=== PATIENT | male | born 2000 | race African-American/Black ===

== ENCOUNTER 2020-08-22 20:56 | Emergency (ER) | payer OTHER ==
[2020-08-22 21:15] VITALS: TEMP 99
--- NOTE | 2020-08-22 21:31 | ED ---
Nausea/Vomiting/Diarrhea HPI - General Chief complaint: Abdominal Pain Stated complaint: ABD pain Time Seen by Provider: 08/22/20 21:17 Source: patient, RN notes reviewed, old records reviewed Mode of arrival: ambulatory Limitations: no limitations - History of Present Illness Initial comments: This is a 20-year-old male DF for evaluation patient has nausea vomiting sweating chills overall not feeling well. Patient has had decreased with difficult to have a bowel movement for a week or so now. He has been taking some stool softeners sulfone sulfone no help. Patient presents today for evaluation regards to above symptoms. MD complaint: nausea, diarrhea, abdominal pain -: week(s) Description of Vomiting: food contents Description of Diarrhea: water Associated Abdominal Pain: Yes Location: diffuse Radiation: none Severity: moderate Severity scale (1-10): 5 Quality: cramping, aching Consistency: intermittent Improves with: none Worsens with: none Context: possible food poisoning, sick contacts Associated Symptoms: loss of appetite, nausea/vomiting - Related Data Allergies Allergy/AdvReac Type Severity Reaction Status Date / Time No Known Allergies Allergy Verified 08/22/20 21:15 Review of Systems ROS Statement: Those systems with pertinent positive or pertinent negative responses have been documented in the HPI. ROS Other: All systems not noted in ROS Statement are negative. Past Medical History Past Medical History: No Reported History History of Any Multi-Drug Resistant Organisms: None Reported Past Surgical History: No Surgical Hx Reported Past Psychological History: Anxiety Smoking Status: Current every day smoker Past Alcohol Use History: Occasional Past Drug Use History: None Reported General Exam Limitations: no limitations General appearance: alert, in no apparent distress Head exam: Present: atraumatic, normocephalic, normal inspection Eye exam: Present: normal appearance, PERRL, EOMI. Absent: scleral icterus, conjunctival injection, periorbital swelling ENT exam: Present: normal exam, mucous membranes moist Neck exam: Present: normal inspection. Absent: tenderness, meningismus, lymphadenopathy Respiratory exam: Present: normal lung sounds bilaterally. Absent: respiratory distress, wheezes, rales, rhonchi, stridor Cardiovascular Exam: Present: regular rate, normal rhythm, normal heart sounds. Absent: systolic murmur, diastolic murmur, rubs, gallop, clicks GI/Abdominal exam: Present: soft, normal bowel sounds. Absent: distended, tenderness, guarding, rebound, rigid Extremities exam: Present: normal inspection, full ROM, normal capillary refill. Absent: tenderness, pedal edema, joint swelling, calf tenderness Back exam: Present: normal inspection Neurological exam: Present: alert, oriented X3, CN II-XII intact Psychiatric exam: Present: normal affect, normal mood Skin exam: Present: warm, dry, intact, normal color. Absent: rash Course Vital Signs 08/22/20 08/23/20 21:11 00:07 Temperature 99.0 F Pulse Rate 92 92 Respiratory 18 18 Rate Blood Pressure 134/87 133/79 O2 Sat by Pulse 98 99 Oximetry - Reevaluation(s) Reevaluation #1: 08/23/20 00:00 Medical records reviewed Reevaluation #2: 08/23/20 00:00 Patient symptoms are rapidly improved here in the ER Reevaluation #3: 08/23/20 01:16 Patient family informed results questions answered Medical Decision Making - Medical Decision Making 18 female DF for evaluation patient not feeling well severe dehydration patient given IV hydration feeling better here in the ER and can be discharged home - Lab Data Result diagrams: 08/22/20 23:20 08/22/20 23:20 Lab Results 08/22/20 08/22/20 08/22/20 Range/Units 23:20 23:20 23:20 WBC 4.6 (3.8-10.6) k/uL RBC 5.48 (4.30-5.90) m/uL Hgb 16.1 (13.0-17.5) gm/dL Hct 47.2 (39.0-53.0) % MCV 86.1 (80.0-100.0) fL MCH 29.4 (25.0-35.0) pg MCHC 34.1 (31.0-37.0) g/dL RDW 12.4 (11.5-15.5) % Plt Count 217 (150-450) k/uL MPV 8.3 Neutrophils % 80 % Lymphocytes % 10 % Monocytes % 7 % Eosinophils % 1 % Basophils % 0 % Neutrophils # 3.7 (1.3-7.7) k/uL Lymphocytes # 0.5 L (1.0-4.8) k/uL Monocytes # 0.3 (0-1.0) k/uL Eosinophils # 0.1 (0-0.7) k/uL Basophils # 0.0 (0-0.2) k/uL D-Dimer <0.17 (<0.60) mg/L FEU Sodium 140 (137-145) mmol/L Potassium 3.6 (3.5-5.1) mmol/L Chloride 102 (98-107) mmol/L Carbon Dioxide 27 (22-30) mmol/L Anion Gap 11 mmol/L BUN 11 (9-20) mg/dL Creatinine 0.93 (0.66-1.25) mg/dL Est GFR (CKD-EPI)AfAm >90 (>60 ml/min/1.73 sqM) Est GFR (CKD-EPI)NonAf >90 (>60 ml/min/1.73 sqM) Glucose 96 (74-99) mg/dL Calcium 9.8 (8.4-10.2) mg/dL Phosphorus 3.6 (2.5-4.5) mg/dL Magnesium 1.6 (1.6-2.3) mg/dL Total Bilirubin 0.9 (0.2-1.3) mg/dL AST 27 (17-59) U/L ALT 41 (4-49) U/L Alkaline Phosphatase 102 (38-126) U/L C-Reactive Protein 0.6 (<1.0) mg/dL Total Protein 8.1 (6.3-8.2) g/dL Albumin 4.9 (3.5-5.0) g/dL Lipase 70 (23-300) U/L Urine Color Urine Appearance (Clear) Urine pH (5.0-8.0) Ur Specific [place] (1.001-1.035) Urine Protein (Negative) Urine Glucose (UA) (Negative) Urine Ketones (Negative) Urine Blood (Negative) Urine Nitrite (Negative) Urine Bilirubin (Negative) Urine Urobilinogen (<2.0) mg/dL Ur Leukocyte Esterase (Negative) Urine RBC (0-5) /hpf Urine WBC (0-5) /hpf Urine Mucus (None) /hpf 08/23/20 Range/Units 00:02 WBC (3.8-10.6) k/uL RBC (4.30-5.90) m/uL Hgb (13.0-17.5) gm/dL Hct (39.0-53.0) % MCV (80.0-100.0) fL MCH (25.0-35.0) pg MCHC (31.0-37.0) g/dL RDW (11.5-15.5) % Plt Count (150-450) k/uL MPV Neutrophils % % Lymphocytes % % Monocytes % % Eosinophils % % Basophils % % Neutrophils # (1.3-7.7) k/uL Lymphocytes # (1.0-4.8) k/uL Monocytes # (0-1.0) k/uL Eosinophils # (0-0.7) k/uL Basophils # (0-0.2) k/uL D-Dimer (<0.60) mg/L FEU Sodium (137-145) mmol/L Potassium (3.5-5.1) mmol/L Chloride (98-107) mmol/L Carbon Dioxide (22-30) mmol/L Anion Gap mmol/L BUN (9-20) mg/dL Creatinine (0.66-1.25) mg/dL Est GFR (CKD-EPI)AfAm (>60 ml/min/1.73 sqM) Est GFR (CKD-EPI)NonAf (>60 ml/min/1.73 sqM) Glucose (74-99) mg/dL Calcium (8.4-10.2) mg/dL Phosphorus (2.5-4.5) mg/dL Magnesium (1.6-2.3) mg/dL Total Bilirubin (0.2-1.3) mg/dL AST (17-59) U/L ALT (4-49) U/L Alkaline Phosphatase (38-126) U/L C-Reactive Protein (<1.0) mg/dL Total Protein (6.3-8.2) g/dL Albumin (3.5-5.0) g/dL Lipase (23-300) U/L Urine Color Yellow Urine Appearance Clear (Clear) Urine pH 6.0 (5.0-8.0) Ur Specific [place] 1.042 H (1.001-1.035) Urine Protein 1+ H (Negative) Urine Glucose (UA) Negative (Negative) Urine Ketones 4+ H (Negative) Urine Blood Negative (Negative) Urine Nitrite Negative (Negative) Urine Bilirubin Negative (Negative) Urine Urobilinogen 2.0 (<2.0) mg/dL Ur Leukocyte Esterase Negative (Negative) Urine RBC <1 (0-5) /hpf Urine WBC 1 (0-5) /hpf Urine Mucus Few H (None) /hpf - EKG Data -: EKG Interpreted by Me (EKG sinus tachycardia 102 TX 222 QRS 100 QTc 456) - Radiology Data Radiology results: report reviewed (CT chest CT abdomen and pelvis negative for acute disease), image reviewed Disposition Clinical Impression: Abdominal pain, Constipation, Nausea & vomiting, Dehydration Disposition: HOME SELF-CARE Condition: Good Instructions (If sedation given, give patient instructions): Dehydration (ED) Is patient prescribed a controlled substance at d/c from ED?: No Referrals: None,Stated [Primary Care Provider] - 1-2 days
[2020-08-22] MEDS ORDERED: KETOROLAC 15 MG/ML 1 ML VIAL IVP STA (22:32)
[2020-08-22] MEDS ORDERED: ONDANSETRON 4 MG/2 ML VIAL IVP STA (22:32)
[2020-08-22] MEDS ORDERED: SODIUM CHLORIDE 0.9% 1,000 ML IV STA ×2 (22:32)
[2020-08-22 23:42] LABS: Basophils % (A) 0 %; Eosinophils # (A) 0.1 k/uL (0-0.7); Eosinophils % (A) 1 %; HCT 47.2 % (39.0-53.0); HGB 16.1 gm/dL (13.0-17.5); Lymphocytes # (A) 0.5 k/uL (1.0-4.8); Lymphocytes % (A) 10 %; MCH 29.4 pg (25.0-35.0); MCHC 34.1 g/dL (31.0-37.0); MCV 86.1 fL (80.0-100.0); Mean Platelet Volume 8.3; Monocytes # (A) 0.3 k/uL (0-1.0); Monocytes % (A) 7 %; Neutrophils # (A) 3.7 k/uL (1.3-7.7); Neutrophils % (A) 80 %; Platelet Count 217 k/uL (150-450); RBC 5.48 m/uL (4.30-5.90); RDW 12.4 % (11.5-15.5); WBC 4.6 k/uL (3.8-10.6)
--- NOTE | 2020-08-23 00:03 | CT ---
EXAMINATION TYPE: CT angio chest DATE OF EXAM: 08/22/2020 COMPARISON: None HISTORY: abdominal and chest pain CT DLP: 813.3 mGycm Automated exposure control for dose reduction was used. CONTRAST: Performed with IV Contrast, patient injected with 100 mL of Isovue 370. There are 3-D post processed images. The lungs are clear of infiltrate. There is no pleural effusion or pneumothorax. Heart size is normal . There is no pericardial effusion. Upper abdominal soft tissues are intact. There are no hilar masses. There is no mediastinal adenopathy. Thoracic aorta is intact. There is no aneurysm or dissection. There is normal contrast opacification of the pulmonary arteries. There are n o filling defects. The thoracic spine is intact. There is no compression fracture. Sternum is intact. IMPRESSION: Normal exam. No evidence of pulmonary embolism.
[2020-08-23 00:06] LABS: ALT 41 U/L (4-49); AST 27 U/L (17-59); African American GFR (CKD) >90 (>60 ml/min/1.73 sqM); Albumin 4.9 g/dL (3.5-5.0); Alkaline Phosphatase 102 U/L (38-126); Anion Gap 11 mmol/L; Blood Urea Nitrogen 11 mg/dL (9-20); C Reactive Protein 0.6 mg/dL (<1.0); Calcium 9.8 mg/dL (8.4-10.2); Carbon Dioxide 27 mmol/L (22-30); Chloride 102 mmol/L (98-107); Glucose 96 mg/dL (74-99); Lipase 70 U/L (23-300); Magnesium 1.6 mg/dL (1.6-2.3); Non-African American GFR(CKD) >90 (>60 ml/min/1.73 sqM); Phosphorus 3.6 mg/dL (2.5-4.5); Potassium 3.6 mmol/L (3.5-5.1); Sodium 140 mmol/L (137-145); Total Bilirubin 0.9 mg/dL (0.2-1.3); Total Protein 8.1 g/dL (6.3-8.2)
--- NOTE | 2020-08-23 00:08 | CT ---
EXAMINATION TYPE: CT abdomen pelvis w con DATE OF EXAM: 08/22/2020 COMPARISON: None HISTORY: abdominal and chest pain CT DLP: 813.3 mGycm Automated exposure control for dose reduction was used. CONTRAST: Performed with IV Contrast, patient injected with 100 mL of Isovue 370. Lung bases are clear. Heart is normal. Liver spleen stomach pancreas gallbladder appear normal. Bile ducts are not dilated. There is normal contrast opacification of the kidneys. There is no hydronephro sis. There is no adrenal mass. Ureters are not dilated. Delayed images show normal renal excretion. T here is no retroperitoneal adenopathy. There is no inguinal hernia. Bladder distends smoothly. There is no evidence of a pelvic mass. There is no mesenteric edema. There is no ascites or free air. There is no bowel obstruction. Appendi x is posterior and lateral and appears normal. The lumbar vertebra have normal alignment. Disc spaces are normal. There is no compression fracture. The bony pelvis is intact. There is no hip dysplasia. Sacroiliac joints appear normal. IMPRESSION: Normal CT scan of the abdomen and pelvis. Normal appendix.
[2020-08-23 00:40] LABS: Appearance,Urine Clear (Clear); Bilirubin,Urine Negative (Negative); Blood,Urine Negative (Negative); Color,Urine Yellow; Glucose,Urine (UA) Negative (Negative); Ketones,Urine 4+ (Negative); Leukocyte Esterase,Urine Negative (Negative); Mucus,Urine Few /hpf; Nitrite,Urine Negative (Negative); Protein,Urine 1+ (Negative); RBC,Urine <1 /hpf (0-5); Specific Gravity,Urine 1.042 (1.001-1.035); WBC,Urine 1 /hpf (0-5)
[2020-08-23] MEDS ORDERED: SODIUM CHLORIDE 0.9% 1,000 ML IV STA (01:16)
[2020-08-23 01:31] VITALS: BP 132/80; PULSE 68; RESP 16
== END 2020-08-23 01:32 | disposition home or self-care (01) ==
LOC: EC 20:56
DX: R10.84 Generalized abdominal pain (principal); K59.00 Constipation, unspecified; R11.2 Nausea with vomiting, unspecified; E86.0 Dehydration; R19.7 Diarrhea, unspecified; R63.0 Anorexia; R68.83 Chills (without fever); R61 Generalized hyperhidrosis; F17.200 Nicotine dependence, unspecified, uncomplicated
CPT/HCPCS: 36415; 93005; 85379; 80053; 83690; 83735; 84100; 85025; 86140; 81001; 71275; 74177; 99284; 96374; 96375; 96361; J2405; J1885; Q9967

== ENCOUNTER 2020-08-24 01:34 | Observation (INO) | payer OTHER ==
[2020-08-24] MEDS ORDERED: ONDANSETRON 4 MG/2 ML VIAL IVP STA (01:46)
[2020-08-24] MEDS ORDERED: SODIUM CHLORIDE 0.9% 1,000 ML IV STA ×3 (01:46→03:20)
[2020-08-24] MEDS ORDERED: KETOROLAC 15 MG/ML 1 ML VIAL IVP STA (01:48)
--- NOTE | 2020-08-24 01:48 | ED ---
Nausea/Vomiting/Diarrhea HPI - General Chief complaint: Nausea/Vomiting/Diarrhea Stated complaint: Confusion Time Seen by Provider: 08/24/20 01:39 Source: patient, family Mode of arrival: wheelchair Limitations: no limitations - History of Present Illness Initial comments: This is a 18-year-old male for reevaluation regarding nausea vomiting decreased appetite inability to drink and altered mental status. Patient is brought in by By family for not acting appropriately. Shaking this, anxious, persistent nausea vomiting. Patient was recently seen in our emergency department day and a half ago for similar complaints MD complaint: nausea, vomiting, diarrhea, abdominal pain -: days(s) Description of Vomiting: watery Description of Diarrhea: water Associated Abdominal Pain: Yes Location: diffuse Radiation: none Severity: mild Severity scale (1-10): 2 Quality: cramping Consistency: constant Improves with: none Worsens with: none Context: other (stress) Associated Symptoms: loss of appetite, nausea/vomiting, other (anxiety) - Related Data Allergies Allergy/AdvReac Type Severity Reaction Status Date / Time No Known Allergies Allergy Verified 08/24/20 01:39 Review of Systems ROS Statement: Those systems with pertinent positive or pertinent negative responses have been documented in the HPI. ROS Other: All systems not noted in ROS Statement are negative. Past Medical History Past Medical History: No Reported History History of Any Multi-Drug Resistant Organisms: None Reported Past Surgical History: No Surgical Hx Reported Past Psychological History: Anxiety Smoking Status: Current every day smoker Past Alcohol Use History: Occasional Past Drug Use History: None Reported General Exam Limitations: no limitations General appearance: alert, in no apparent distress Head exam: Present: atraumatic, normocephalic, normal inspection Eye exam: Present: normal appearance, PERRL, EOMI. Absent: scleral icterus, conjunctival injection, periorbital swelling ENT exam: Present: normal exam, mucous membranes moist Neck exam: Present: normal inspection. Absent: tenderness, meningismus, lymphadenopathy Respiratory exam: Present: normal lung sounds bilaterally. Absent: respiratory distress, wheezes, rales, rhonchi, stridor Cardiovascular Exam: Present: regular rate, normal rhythm, normal heart sounds. Absent: systolic murmur, diastolic murmur, rubs, gallop, clicks GI/Abdominal exam: Present: soft, normal bowel sounds. Absent: distended, tenderness, guarding, rebound, rigid Extremities exam: Present: normal inspection, full ROM, normal capillary refill. Absent: tenderness, pedal edema, joint swelling, calf tenderness Back exam: Present: normal inspection Neurological exam: Present: alert, oriented X3, CN II-XII intact Psychiatric exam: Present: normal affect, normal mood Skin exam: Present: warm, dry, intact, normal color. Absent: rash Course Vital Signs 08/24/20 08/24/20 01:40 03:30 Temperature 98.0 F 99.4 F Pulse Rate 98 88 Respiratory 24 16 Rate Blood Pressure 144/59 128/83 O2 Sat by Pulse 98 97 Oximetry - Reevaluation(s) Reevaluation #1: 08/24/20 04:10 Chronic record is reviewed 08/24/20 04:16 ER visit from 2 days ago is reviewed Reevaluation #2: 08/24/20 04:15 Patient does make, and passing regarding stress that he feels he is under Reevaluation #3: 08/24/20 04:15 Patient continues to shake profusely here in the emergency department weak dizzy unable to eat or drink Medical Decision Making - Medical Decision Making 20 male to be admitted for symptomatically therapy and psychiatric evaluation persistent nausea vomiting dehydration weakness - Lab Data Result diagrams: 08/24/20 02:20 08/24/20 02:20 Lab Results 08/24/20 08/24/20 08/24/20 Range/Units 02:20 02:20 02:20 WBC 2.9 L (3.8-10.6) k/uL RBC 5.37 (4.30-5.90) m/uL Hgb 15.4 (13.0-17.5) gm/dL Hct 46.3 (39.0-53.0) % MCV 86.2 (80.0-100.0) fL MCH 28.7 (25.0-35.0) pg MCHC 33.3 (31.0-37.0) g/dL RDW 12.8 (11.5-15.5) % Plt Count 207 (150-450) k/uL MPV 8.4 Neutrophils % 73 % Lymphocytes % 15 % Monocytes % 9 % Eosinophils % 1 % Basophils % 1 % Neutrophils # 2.1 (1.3-7.7) k/uL Lymphocytes # 0.4 L (1.0-4.8) k/uL Monocytes # 0.3 (0-1.0) k/uL Eosinophils # 0.0 (0-0.7) k/uL Basophils # 0.0 (0-0.2) k/uL Sodium 136 L (137-145) mmol/L Potassium 4.2 (3.5-5.1) mmol/L Chloride 103 (98-107) mmol/L Carbon Dioxide 22 (22-30) mmol/L Anion Gap 11 mmol/L BUN 4 L (9-20) mg/dL Creatinine 0.81 (0.66-1.25) mg/dL Est GFR (CKD-EPI)AfAm >90 (>60 ml/min/1.73 sqM) Est GFR (CKD-EPI)NonAf >90 (>60 ml/min/1.73 sqM) Glucose 174 H (74-99) mg/dL Plasma Lactic Acid Aram 3.0 H* (0.7-2.0) mmol/L Calcium 9.5 (8.4-10.2) mg/dL Phosphorus 2.2 L (2.5-4.5) mg/dL Magnesium 1.7 (1.6-2.3) mg/dL Total Bilirubin 1.2 (0.2-1.3) mg/dL AST 35 (17-59) U/L ALT 32 (4-49) U/L Alkaline Phosphatase 81 (38-126) U/L Ammonia 15 (<30) umol/L Creatine Kinase 126 (55-170) U/L Troponin I (0.000-0.034) ng/mL Total Protein 7.5 (6.3-8.2) g/dL Albumin 4.5 (3.5-5.0) g/dL Urine Color Urine Appearance (Clear) Urine pH (5.0-8.0) Ur Specific [place] (1.001-1.035) Urine Protein (Negative) Urine Glucose (UA) (Negative) Urine Ketones (Negative) Urine Blood (Negative) Urine Nitrite (Negative) Urine Bilirubin (Negative) Urine Urobilinogen (<2.0) mg/dL Ur Leukocyte Esterase (Negative) Salicylates <1.0 mg/dL Acetaminophen <10.0 ug/mL Serum Alcohol <10 mg/dL Acetone, Qual Negative (Negative) Coronavirus (PCR) (Not Detectd) 08/24/20 08/24/20 08/24/20 Range/Units 02:20 03:10 03:54 WBC (3.8-10.6) k/uL RBC (4.30-5.90) m/uL Hgb (13.0-17.5) gm/dL Hct (39.0-53.0) % MCV (80.0-100.0) fL MCH (25.0-35.0) pg MCHC (31.0-37.0) g/dL RDW (11.5-15.5) % Plt Count (150-450) k/uL MPV Neutrophils % % Lymphocytes % % Monocytes % % Eosinophils % % Basophils % % Neutrophils # (1.3-7.7) k/uL Lymphocytes # (1.0-4.8) k/uL Monocytes # (0-1.0) k/uL Eosinophils # (0-0.7) k/uL Basophils # (0-0.2) k/uL Sodium (137-145) mmol/L Potassium (3.5-5.1) mmol/L Chloride (98-107) mmol/L Carbon Dioxide (22-30) mmol/L Anion Gap mmol/L BUN (9-20) mg/dL Creatinine (0.66-1.25) mg/dL Est GFR (CKD-EPI)AfAm (>60 ml/min/1.73 sqM) Est GFR (CKD-EPI)NonAf (>60 ml/min/1.73 sqM) Glucose (74-99) mg/dL Plasma Lactic Acid Aram (0.7-2.0) mmol/L Calcium (8.4-10.2) mg/dL Phosphorus (2.5-4.5) mg/dL Magnesium (1.6-2.3) mg/dL Total Bilirubin (0.2-1.3) mg/dL AST (17-59) U/L ALT (4-49) U/L Alkaline Phosphatase (38-126) U/L Ammonia (<30) umol/L Creatine Kinase (55-170) U/L Troponin I <0.012 (0.000-0.034) ng/mL Total Protein (6.3-8.2) g/dL Albumin (3.5-5.0) g/dL Urine Color Colorless Urine Appearance Clear (Clear) Urine pH 6.5 (5.0-8.0) Ur Specific [place] 1.002 (1.001-1.035) Urine Protein Negative (Negative) Urine Glucose (UA) Negative (Negative) Urine Ketones Negative (Negative) Urine Blood Negative (Negative) Urine Nitrite Negative (Negative) Urine Bilirubin Negative (Negative) Urine Urobilinogen <2.0 (<2.0) mg/dL Ur Leukocyte Esterase Negative (Negative) Salicylates mg/dL Acetaminophen ug/mL Serum Alcohol mg/dL Acetone, Qual (Negative) Coronavirus (PCR) Not Detected (Not Detectd) Disposition Clinical Impression: Nausea & vomiting, Abdominal pain, Dehydration, Anxiety Disposition: ADMITTED IP TO THIS HOSP Condition: Good Instructions (If sedation given, give patient instructions): Acute Nausea and Vomiting (ED) Is patient prescribed a controlled substance at d/c from ED?: No Referrals: None,Stated [Primary Care Provider] - 1-2 days
[2020-08-24 02:31] LABS: Basophils % (A) 1 %; Eosinophils % (A) 1 %; HCT 46.3 % (39.0-53.0); HGB 15.4 gm/dL (13.0-17.5); Lymphocytes # (A) 0.4 k/uL (1.0-4.8); Lymphocytes % (A) 15 %; MCH 28.7 pg (25.0-35.0); MCHC 33.3 g/dL (31.0-37.0); MCV 86.2 fL (80.0-100.0); Mean Platelet Volume 8.4; Monocytes # (A) 0.3 k/uL (0-1.0); Monocytes % (A) 9 %; Neutrophils # (A) 2.1 k/uL (1.3-7.7); Neutrophils % (A) 73 %; Platelet Count 207 k/uL (150-450); RBC 5.37 m/uL (4.30-5.90); RDW 12.8 % (11.5-15.5); WBC 2.9 k/uL (3.8-10.6)
[2020-08-24 02:41] LABS: ALT 32 U/L (4-49); AST 35 U/L (17-59); Acetaminophen <10.0 ug/mL; African American GFR (CKD) >90 (>60 ml/min/1.73 sqM); Albumin 4.5 g/dL (3.5-5.0); Alcohol <10 mg/dL; Alkaline Phosphatase 81 U/L (38-126); Anion Gap 11 mmol/L; Blood Urea Nitrogen 4 mg/dL (9-20); Calcium 9.5 mg/dL (8.4-10.2); Carbon Dioxide 22 mmol/L (22-30); Chloride 103 mmol/L (98-107); Creatine Kinase 126 U/L (55-170); Glucose 174 mg/dL (74-99); Magnesium 1.7 mg/dL (1.6-2.3); Non-African American GFR(CKD) >90 (>60 ml/min/1.73 sqM); Phosphorus 2.2 mg/dL (2.5-4.5); Salicylate <1.0 mg/dL; Sodium 136 mmol/L (137-145); Total Bilirubin 1.2 mg/dL (0.2-1.3); Total Protein 7.5 g/dL (6.3-8.2)
[2020-08-24 02:52] LABS: Potassium 4.2 mmol/L (3.5-5.1)
[2020-08-24] MEDS ORDERED: SODIUM CHLORIDE 0.9% 500 ML 500 ML IV STA (03:20)
[2020-08-24 04:07] LABS: Appearance,Urine Clear (Clear); Bilirubin,Urine Negative (Negative); Blood,Urine Negative (Negative); Color,Urine Colorless; Glucose,Urine (UA) Negative (Negative); Ketones,Urine Negative (Negative); Leukocyte Esterase,Urine Negative (Negative); Nitrite,Urine Negative (Negative); PH, Urine 6.5 (5.0-8.0); Protein,Urine Negative (Negative); Specific Gravity,Urine 1.002 (1.001-1.035); Urobilinogen,Urine <2.0 mg/dL (<2.0)
[2020-08-24 04:08] VITALS: RESP 16
[2020-08-24] MEDS ORDERED: PANTOPRAZOLE 40 MG/10 ML VIAL IVP STA (04:12)
[2020-08-24] MEDS ORDERED: ONDANSETRON 4 MG/2 ML VIAL IVP PRN (04:12)
[2020-08-24] MEDS ORDERED: diphenhydrAMINE 50 MG/ML 1 ML VIAL IVP PRN (04:12)
[2020-08-24] MEDS ORDERED: MORPHINE SULFATE 4 MG/ML SYRINGE IV PRN (04:13)
[2020-08-24] MEDS ORDERED: NALOXONE 0.4 MG/ML 1 ML VIAL IV PRN (04:13)
[2020-08-24 04:18] LABS: Amphetamine Screen,Urine Not Detected (NotDetected); Barbiturate Screen,Urine Not Detected (NotDetected); Benzodiazepines Screen,Urine Not Detected (NotDetected); Cocaine Screen,Urine Not Detected (NotDetected); Methadone Screen, Urine Not Detected (NotDetected); Opiate Screen,Urine Not Detected (NotDetected); Oxycodone Screen, Urine Not Detected (NotDetected); Phencyclidine Screen,Urine Not Detected (NotDetected); Tricyclic Antidepressant,Urine Not Detected (NotDetected); Urn Cannabinoid Scrn Detected (NotDetected)
[2020-08-24] MEDS: LORazepam 2 MG/ML INJ IV STA ×2 (04:42→04:49)
[2020-08-24] MEDS ORDERED: Phosphorus Replacement Protoco 1 EACH MISC MISCELLANE PRN (04:54)
[2020-08-24] MEDS ORDERED: POTASSIUM PHOSPHATE 10 MMOL in SODIUM CHLORIDE 0.9% 250 ML IV ONE (05:00)
--- NOTE | 2020-08-24 05:23 | P.HPIM ---
History of Present Illness H&P Date: 08/24/20 Chief Complaint: Bizarre behavior 20-year-old malewith Past medical history Patient is in the room with his sister and mother who PARTICIPATE in providing history. Seems like patient today was not feeling well and over the past few days he has been having decreased by mouth intake they were trying to encourage him to increase his water intake to avoid dehydration today he was feeling very weak and tired with some loose bowel movements denies any abdominal pain denies chest pain denies trouble breathing denies upper respiratory infection symptoms. Initially in the ED he mentioned vomiting however during my interview he is denying any vomiting or nausea. He is reporting that he is not feeling well and doesn't have good appetite and he is having very poor sleep quality and he is having poor energy and some weight loss symptoms were suggestive of depression however when I mentioned he feels a depressed mood or homicidal or suicidal he denied immediately. Looks like the reason he was brought to the hospital is when he woke up from a short nap and he looked confused and then he passed out and was not responsive for couple seconds and then woke up again and was confused and doing some shaky movements for which his family grew concerned and decided to bring him to the hospital for evaluation Patient denies any other issues going on he denies any recent travel or sick contacts. Patient thinks that these symptoms he is experiencing are due to smoking marijuana which he does for anxiety. In the ED workup in which was negative blood work showed leukopenia which the mother is aware of as he had that back in 2019 however he was lost to follow-up. Also showed some mild hypophosphatemia, and lactic acidosis urine drug screen was positive for marijuana urinalysis was negative Review of Systems Pertinent positives as noted in HPI. All other systems were reviewed and are negative Past Medical History Past Medical History: No Reported History History of Any Multi-Drug Resistant Organisms: None Reported Past Surgical History: No Surgical Hx Reported Past Psychological History: Anxiety Smoking Status: Current every day smoker Past Alcohol Use History: Occasional Past Drug Use History: None Reported - Past Family History Family Family Medical History: No Reported History Medications and Allergies Allergies Allergy/AdvReac Type Severity Reaction Status Date / Time No Known Allergies Allergy Verified 08/24/20 01:39 Physical Exam Vitals: Vital Signs Temp Pulse Resp BP Pulse Ox 08/24/20 03:30 99.4 F 88 16 128/83 97 08/24/20 01:40 98.0 F 98 24 144/59 98 Intake and Output 08/23/20 08/23/20 08/24/20 14:59 22:59 06:59 Other: Weight 74.843 kg Constitutional: No acute distress, conversant, pleasant Eyes: Anicteric sclerae, moist conjunctiva, Pupils equal round reactive to light ENMT: NC/AT Oropharynx clear, no erythema, or exudates Neck: Supple, FROM, no masses, or JVD No carotid bruits No thyromegaly Lungs: Clear to auscultation Clear to percussion Normal respiratory effort, no accessory muscle use Cardiovascular: Heart regular in rate and rhythm, No murmurs, gallops, or rubs No peripheral edema Abdominal: Soft Nontender, no guarding, rebound or rigidity Abdomen moving with respiration Normoactive bowel sounds No hepatomegaly, No splenomegaly No palpable mass No abdominal wall hernia noted Skin: Normal temperature, tone, texture, turgor No induration No subcutaneous nodules No rash, lesions No ulcers Extremities: No digital cyanosis No clubbing Pedal pulses intact and symmetrical Radial pulses intact and symmetrical No calf tenderness Psychiatric: Alert and oriented to person, place and time Appropriate affect fair judgement Neuro Muscles Strength 5/5 in all 4 extremities Sensation to light touch grossly present throughout Cranial nerves II-XII grossly intact No focal sensory deficits Lymphatics: no palpable cervical or supraclavicular , or inguinal lymph nodes Results CBC & Chem 7: 08/24/20 02:20 08/24/20 02:20 Labs: Abnormal Lab Results - Last 24 Hours (Table) 08/24/20 08/24/20 08/24/20 Range/Units 02:20 02:20 02:20 WBC 2.9 L (3.8-10.6) k/uL Lymphocytes # 0.4 L (1.0-4.8) k/uL Sodium 136 L (137-145) mmol/L BUN 4 L (9-20) mg/dL Glucose 174 H (74-99) mg/dL Plasma Lactic Acid Aram 3.0 H* (0.7-2.0) mmol/L Phosphorus 2.2 L (2.5-4.5) mg/dL U Marijuana (THC) Screen (NotDetected) 06/25/21 Range/Units 03:54 WBC (3.8-10.6) k/uL Lymphocytes # (1.0-4.8) k/uL Sodium (137-145) mmol/L BUN (9-20) mg/dL Glucose (74-99) mg/dL Plasma Lactic Acid Aram (0.7-2.0) mmol/L Phosphorus (2.5-4.5) mg/dL U Marijuana (THC) Screen Detected H (NotDetected) Assessment and Plan Assessment: Vomiting and diarrhea Lactic acidosis Suspected depression/anxiety, Bizarre behavior Hypophosphatemia Leukopenia Plan Symptomatically control IV fluid hydration Zofran for nausea and vomiting Replace phosphorus and follow up levels Aggressive IV fluid hydration and follow-up lactic acid Psych evaluation Patient encouraged to quit smoking marijuana Supportive care Follow-up CBC and complete metabolic panel Patient is full code Anticipated length of stay less than 2 midnights Anticipated discharge to home DVT prophylaxis patient ambulatory, low risk
[2020-08-24 07:08] VITALS: TEMP 99
[2020-08-24] MEDS ORDERED: PANTOPRAZOLE 40 MG/10 ML VIAL IVP SCH (09:00)
[2020-08-24 14:01] VITALS: BP 139/61; PULSE 75
--- NOTE | 2020-08-24 14:21 | P.DS ---
Providers Date of admission: 08/24/20 04:13 Expected date of discharge: 08/24/20 Attending physician: Gurpreet Lee MD Consults: 08/24/20 04:14 Consult Physician Routine Consulting Provider: Sivakumar Del Angel Consult Reason/Comments: anxiety Do you want consulting provider notified?: Yes Primary care physician: Stated None Hospital Course: This is a 20-year-old male with past medical history significant for marijuana abuse that presented to the emergency room with nausea and vomiting and a depressed mood. Patient was placed on observation was treated with supportive measures and IV fluids. His overall condition improved significantly. His presentation was attributed to cannabinoid hyperemesis syndrome. He was seen and evaluated by psychiatry. He was started on Remeron 15 mg at bedtime. He was cleared for discharge home. He was able to tolerate regular diet with no difficulty. He was encouraged to follow up with primary care physician. Patient Condition at Discharge: Good Plan - Discharge Summary New Discharge Prescriptions: New Mirtazapine [Remeron] 15 mg PO HS #30 tab Discharge Medication List Mirtazapine [Remeron] 15 mg PO HS #30 tab 08/24/20 [Rx] Follow up Appointment(s)/Referral(s): None,Stated [Primary Care Provider] - 1-2 days Patient Instructions/Handouts: Acute Nausea and Vomiting (ED) Discharge Disposition: HOME SELF-CARE
--- NOTE | 2020-08-24 15:10 | P.CN ---
Psychiatric Consult - . Consult date: 08/24/20 Consult:: 08/24/20 15:09 IDENTIFYING DATA: This patient is a single, in school, 20-year-old - [place] Citizen male who presented to the emergency department with nausea, vomiting, and anxiety. HISTORY OF PRESENT ILLNESS: Present in the room with the patient is his girlfriend. The patient presented to the hospital on 08/24/20 with complaints of elevated anxiety, nausea, vomiting, low appetite, and generalized weakness. Psychiatry has been consulted for evaluation of anxiety. Patient does report that he has been feeling increasingly depressed and anxious ever since the of his grandfather. He does report significant symptoms of depression including low energy, low motivation, and feelings of guilt. In regards to anxiety, the patient does admit to occasional episodes of palpitations but mainly complains of nausea and generalized feelings of unease. The patient vehemently denies any suicidal or homicidal ideation. He denies any prior attempts at suicide. He is not reporting any auditory or visualizations. He is denying any bipolar symptoms. He reports no increased goal-directed behavior, grandiosity, lability, or racing thoughts. The patient expresses multiple reasons for his elevated anxiety. He states that he initially wants to pursue a career in basketball but notes that it is becoming harder and harder each day to fill this dream. He does express that he feels like a disappointment at times. The patient states that he has been primarily smoking marijuana daily to help cope with his symptoms. The patient does admit that when he takes hot showers, his nausea tends to improve. He reports that he is often in the shower for 30 minutes or more. PAST PSYCHIATRIC HISTORY: The patient denies any previous psychiatric diagnoses. He denies any outpatient treatment. He denies any inpatient treatment. He reports no prior attempts at suicide. He denies any prior medications. PAST MEDICAL HISTORY: Past Medical History: No Reported History History of Any Multi-Drug Resistant Organisms: None Reported Past Surgical History: No Surgical Hx Reported Past Psychological History: Anxiety Smoking Status: Current every day smoker Past Alcohol Use History: Occasional Past Drug Use History: None Reported ALLERGIES: NO KNOWN DRUG ALLERGIES CHEMICAL DEPENDENCY HISTORY: The patient does report daily and frequent marijuana use. He denies any tobacco, alcohol, or illicit drug use. FAMILY PSYCHIATRIC/SUBSTANCE USE HISTORY: Patient denies any significant family psychiatric or substance abuse history. SOCIAL HISTORY: Patient was born in [place] and raised in [place]. He currently lives with his aunt, dad, and her roommate. He reports that he is working on [employer] line. He is currently studying [employer] science at [employer]. He is single, never , has no children. He currently has a girlfriend. MENTAL STATUS EXAM: General Appearance: Patient appears to be stated age is alert, pleasant, and cooperative. Patient appears to have fair hygiene and grooming wearing hospital gown with fair eye contact. Behavior: Patient is calmly lying in bed without any agitated behavior. Eye contact is appropriate. Psychomotor activity appears normal. Speech: Patient's speech is fluent and nonpressured. Mood/Affect: Patient reports their mood is "anxious and depressed", affect is congruent and withdrawn Suicidality/Homicidality: Patient denies any suicidal or homicidal ideation, intention, and/or plan. Perceptions: Patient denies any visual hallucinations and denies any auditory hallucinations Though content/process: There is no evidence of any delusional thought content and thought process is linear and goal-directed. Memory and concentration: AOX3, grossly intact for the purposes of this session. Can spell "WORLD" backwards Judgment and insight: Fair IMPRESSIONS: Cannabinoid hyperemesis Major depressive disorder, mild to moderate, with anxious features PLAN: -At this time patient DOES NOT meet criteria for inpatient psychiatric admis salima. The patient does not present with imminent risk of harm to self or others. He is future oriented, has supportive family and friends, and no previous history of self-harm. -Would recommend the following medication changes/additions: Start Remeron 15 mg by mouth at bedtime for depression/insomnia/nausea Risk, benefits, and alternatives of this medication were discussed in great detail with the patient. The patient verbally agrees to trying this medication. -Recommend social work consult for referral to outpatient psychotherapy/psychiatric services. -The patient was counseled at length on avoiding all substances including alcohol, tobacco, marijuana. We discussed at length cannabinoid-induced hyperemesis and in order to prevent the nausea from occurring he will need to be off marijuana. -Psychiatry will sign off at this point, please contact with any questions. Patient is cleared psychiatrically for discharge.
[2020-08-24] MEDS ORDERED: MIRTAZAPINE 15 MG TAB PO SCH (21:00)
== END 2020-08-24 14:51 | disposition home or self-care (01) ==
LOC: EC 01:34 → 6NMEDSUR 04:13
PROVIDERS: ADMIT Internal Medicine; ATTEND Internal Medicine
DX: R11.10 Vomiting, unspecified (principal); F12.188 Cannabis abuse with other cannabis-induced disorder; R19.7 Diarrhea, unspecified; E87.2 Acidosis; F32.9 Major depressive disorder, single episode, unspecified; F41.9 Anxiety disorder, unspecified; Z20.822 Contact with and (suspected) exposure to COVID-19; E83.39 Other disorders of phosphorus metabolism; D72.819 Decreased white blood cell count, unspecified; F17.200 Nicotine dependence, unspecified, uncomplicated; E86.0 Dehydration; Z79.899 Other long term (current) drug therapy
CPT/HCPCS: 96361; 96365; 96366; 96375; 99285; 36415; 80053; 82140; 82550; 82009; 83605; 83735; 84100; 84484; 85025; 81003; 80306; 80143; 80320; 83036; 87635; 80179; G0378; J2060; J1885